=== PATIENT | female | born 1955 | race Caucasian/White ===

== ENCOUNTER 2017-04-13 11:10 | Inpatient (IN) | payer OTHER ==
[2017-04-13 12:46] LABS: ADD MAN DIFF? NO
[2017-04-13 12:53] LABS: BASOPHIL # 0.1 10^3/ul (0.0-0.1); BASOPHILS % 1.1 % (0.0-2.0); EOSINOPHILS # 0.3 10^3/ul (0.0-0.5); EOSINOPHILS % 3.8 % (0.0-7.0); HEMATOCRIT 42.2 % (37.0-47.0); LYMPHOCYTES # 2.4 10^3/ul (0.8-2.9); LYMPHOCYTES % 33.1 % (15.0-51.0); MEAN CORPUSCULAR HEMOGLOBIN 27.5 pg (29.0-33.0); MEAN CORPUSCULAR HGB CONC 33.2 g/dl (32.0-37.0); MEAN CORPUSCULAR VOLUME 82.9 fl (82.0-101.0); MEAN PLATELET VOLUME 9.6 fl (7.4-10.4); MONOCYTE # 0.6 10^3/ul (0.3-0.9); MONOCYTES % 8.4 % (0.0-11.0); NEUTROPHIL # 3.9 10^3/ul (1.6-7.5); NEUTROPHILS % 53.3 % (39.0-77.0); PLATELET COUNT 334 10^3/UL (140-415); RED BLOOD COUNT 5.09 10^6/ul (4.20-5.40)
[2017-04-13 12:53] LABS: WHITE BLOOD COUNT 7.4 10^3/ul (4.8-10.8)
[2017-04-13] MEDS: hydrALAzine 20 MG INJ IV (12:55)
[2017-04-13] MEDS: NIFEdipine (XL) 60 MG TAB PO (13:04)
[2017-04-13 13:13] LABS: PROTIME 12.2 Sec (11.9-14.9)
[2017-04-13 13:14] LABS: PARTIAL THROMBOPLASTIN TIME 31.5 Sec (25.0-35.0)
[2017-04-13 13:25] LABS: ANION GAP 16 (8-16); BLOOD UREA NITROGEN 17 mg/dl (7-20); CALCIUM 10.3 mg/dl (8.4-10.2); CARBON DIOXIDE 28 mmol/L (21-31); CHLORIDE 99 mmol/L (97-110); GLUCOSE 170 mg/dl (70-220); POTASSIUM 4.2 mmol/L (3.5-5.1); SODIUM 139 mmol/L (135-144)
[2017-04-13] MEDS ORDERED: ACETAMINOPHEN 650 MG SUPP PR (15:00)
[2017-04-13] MEDS ORDERED: DOCUSATE SODIUM 100 MG CAP PO (15:00)
[2017-04-13] MEDS ORDERED: ONDANSETRON (ODT) 4 MG TAB ODT (15:00)
[2017-04-13] MEDS ORDERED: ONDANSETRON 4 MG INJ IV (15:00)
[2017-04-13] MEDS ORDERED: hydrALAzine 20 MG INJ IV (15:00)
[2017-04-13] MEDS ORDERED: ACETAMINOPHEN 325 MG TAB PO (15:00)
[2017-04-13] MEDS ORDERED: BISACODYL 10 MG SUPP PR (15:00)
[2017-04-13] MEDS ORDERED: NACL 0.9% 3 ML SYG IV (15:00)
[2017-04-13] MEDS ORDERED: HYDROCODONE/APAP (5/325) TAB PO (15:00)
[2017-04-13 15:12] LABS: CREATINE KINASE 140 IU/L (23-200)
[2017-04-13 15:25] LABS: CK INDEX 1.8; CK-MB 2.45 ng/ml (0.0-2.4)
[2017-04-13 15:26] LABS: TROPONIN-I < 0.012 ng/ml (0.00-0.12)
[2017-04-13] MEDS: morphine 2 MG INJ IV (15:59)
[2017-04-13] MEDS: ASPIRIN 325 MG TAB PO (15:59)
[2017-04-13] MEDS: ACET/BUTAL/CAFF TAB PO (16:22)
[2017-04-13 16:30] LABS: HEMOGLOBIN A1C 8.3 % (0-5.9)
[2017-04-13] MEDS ORDERED: DEXTROSE 50% 50 ML SYRINGE IV ×2 (16:30)
[2017-04-13] MEDS ORDERED: GLUCOSE GEL 15 GRAM TUBE PO ×2 (16:30)
[2017-04-13] MEDS ORDERED: GLUCOSE GEL 15 GRAM TUBE BUCCAL (16:30)
[2017-04-13] MEDS ORDERED: GLUCAGON 1 MG INJ IM (16:30)
[2017-04-13] MEDS: INSULIN ASPART [NOVOLOG] 3 ML PEN SC ×2 (20:17→21:00)
[2017-04-13] MEDS: ATORVASTATIN 40 MG TAB PO (21:11)
[2017-04-13 22:26] LABS: CREATINE KINASE 93 IU/L (23-200)
[2017-04-13 22:39] LABS: TROPONIN-I 0.016 ng/ml (0.00-0.12)
[2017-04-14] MEDS: ACCU-CHEK XX (02:22)
[2017-04-14] MEDS: PANTOPRAZOLE 40 MG INJ IV (05:30)
[2017-04-14 06:57] LABS: HEMOGLOBIN A1C 8.3 % (0-5.9)
[2017-04-14 07:28] LABS: ALANINE AMINOTRANSFERASE 44 IU/L (13-69); ALBUMIN/GLOBULIN RATIO 1.17; ALKALINE PHOSPHATASE 89 IU/L (42-121); ANION GAP 15 (8-16); ASPARTATE AMINO TRANSFERASE 25 IU/L (15-46); BILIRUBIN,INDIRECT 0.3 mg/dl (0-1.1); BILIRUBIN,TOTAL 0.3 mg/dl (0.2-1.3); BLOOD UREA NITROGEN 21 mg/dl (7-20); CALCIUM 10.1 mg/dl (8.4-10.2); CARBON DIOXIDE 28 mmol/L (21-31); CHLORIDE 101 mmol/L (97-110); CHOL/HDL RATIO 6.2 RATIO; CHOLESTEROL 217 mg/dl (100-200); CREATININE 0.71 mg/dl (0.44-1.00); GLUCOSE 229 mg/dl (70-220); HDL CHOLESTEROL 35 mg/dl (35-98); LDL CHOLESTEROL,CALCULATED 99 mg/dl; MAGNESIUM 1.3 mg/dl (1.7-2.5); PHOSPHORUS 4.8 mg/dl (2.5-4.9); POTASSIUM 4.1 mmol/L (3.5-5.1); SODIUM 140 mmol/L (135-144); TOTAL PROTEIN 7.4 g/dl (6.1-8.1); TRIGLYCERIDES 416 mg/dl (0-149)
[2017-04-14 07:41] LABS: FREE THYROXINE INDEX (Calc) 3.24 ug/ml (0.65-3.89); T3 UPTAKE 32.4 % (23.5-40.5)
[2017-04-14] MEDS: INSULIN GLARGINE [LANtus] 3 ML PEN SC (09:40)
[2017-04-14] MEDS: INSULIN ASPART [NOVOLOG] 3 ML PEN SC ×4 (09:40→20:13)
[2017-04-14] MEDS: ASPIRIN (EC) 325 MG TAB PO (11:07)
[2017-04-14] MEDS: AMLODIPINE 5 MG TAB PO (15:36)
[2017-04-14] MEDS: ACET/BUTAL/CAFF TAB PO ×2 (15:39→20:08)
[2017-04-14] MEDS: hydrALAzine 20 MG INJ IV (18:40)
[2017-04-14] MEDS: ATORVASTATIN 40 MG TAB PO (20:05)
[2017-04-14] MEDS: METOPROLOL 25 MG TAB PO (20:16)
[2017-04-14] MEDS: HYDROCODONE/APAP (5/325) TAB PO (21:35)
[2017-04-15] MEDS: ACCU-CHEK XX (02:00)
[2017-04-15] MEDS: hydrALAzine 20 MG INJ IV ×3 (05:45→16:46)
[2017-04-15] MEDS: PANTOPRAZOLE 40 MG INJ IV (05:45)
[2017-04-15] MEDS: INSULIN ASPART [NOVOLOG] 3 ML PEN SC ×6 (08:02→21:03)
[2017-04-15] MEDS: INSULIN GLARGINE [LANtus] 3 ML PEN SC (08:02)
[2017-04-15] MEDS: ASPIRIN (EC) 325 MG TAB PO (08:12)
[2017-04-15] MEDS: METOPROLOL 25 MG TAB PO ×2 (08:13→20:43)
[2017-04-15] MEDS: LISINOPRIL 10 MG TAB PO (11:35)
[2017-04-15] MEDS: HYDROCODONE/APAP (5/325) TAB PO (13:56)
[2017-04-15] MEDS: MAGNESIUM HYDROXIDE 30ML CUP PO (13:58)
[2017-04-15] MEDS: ACET/BUTAL/CAFF TAB PO (16:45)
[2017-04-15] MEDS: MAGNESIUM SULFATE 4 GM/100 ML 100 ML IVPB (20:42)
[2017-04-15] MEDS: ATORVASTATIN 80 MG TAB PO (20:43)
[2017-04-15] MEDS: TOPIRAMATE 25 MG TAB PO (20:43)
[2017-04-16] MEDS: hydrALAzine 20 MG INJ IV ×4 (00:19→14:12)
[2017-04-16] MEDS: ACCU-CHEK XX ×2 (02:00→21:26)
[2017-04-16] MEDS: PANTOPRAZOLE 40 MG INJ IV (05:33)
[2017-04-16] MEDS: METOPROLOL 25 MG TAB PO ×2 (08:21→21:26)
[2017-04-16] MEDS: LISINOPRIL 20 MG TAB PO (08:21)
[2017-04-16] MEDS: ASPIRIN (EC) 325 MG TAB PO (08:21)
[2017-04-16] MEDS: INSULIN GLARGINE [LANtus] 3 ML PEN SC (08:27)
[2017-04-16] MEDS: INSULIN ASPART [NOVOLOG] 3 ML PEN SC ×7 (08:28→20:42)
[2017-04-16] MEDS: ENOXAPARIN 40 MG/0.4 ML SYG SC (08:29)
[2017-04-16 08:59] LABS: ANION GAP 17 (8-16); BLOOD UREA NITROGEN 25 mg/dl (7-20); CALCIUM 9.1 mg/dl (8.4-10.2); CARBON DIOXIDE 26 mmol/L (21-31); CHLORIDE 100 mmol/L (97-110); CREATININE 0.68 mg/dl (0.44-1.00); GLUCOSE 218 mg/dl (70-220); MAGNESIUM 2.2 mg/dl (1.7-2.5); POTASSIUM 4.5 mmol/L (3.5-5.1); SODIUM 138 mmol/L (135-144)
[2017-04-16] MEDS: AMLODIPINE 5 MG TAB PO ×2 (14:55→23:52)
[2017-04-16] MEDS: TOPIRAMATE 25 MG TAB PO (21:25)
[2017-04-16] MEDS: ATORVASTATIN 80 MG TAB PO (21:26)
[2017-04-17] MEDS: PANTOPRAZOLE 40 MG INJ IV (06:26)
[2017-04-17 07:01] LABS: ADD MAN DIFF? NO
[2017-04-17 07:07] LABS: EOSINOPHILS % 4.8 % (0.0-7.0); HEMATOCRIT 39.6 % (37.0-47.0); HEMOGLOBIN 13.1 g/dl (12.0-16.0); LYMPHOCYTES % 38.5 % (15.0-51.0); MEAN CORPUSCULAR HEMOGLOBIN 27.5 pg (29.0-33.0); MEAN CORPUSCULAR HGB CONC 33.1 g/dl (32.0-37.0); MONOCYTES % 7.7 % (0.0-11.0); NEUTROPHILS % 47.5 % (39.0-77.0); PLATELET COUNT 293 10^3/UL (140-415); RED BLOOD COUNT 4.77 10^6/ul (4.20-5.40); RED CELL DISTRIBUTION WIDTH 13.5 % (11.5-14.5)
[2017-04-17 07:07] LABS: WHITE BLOOD COUNT 6.2 10^3/ul (4.8-10.8)
[2017-04-17 07:08] LABS: BASOPHIL # 0.1 10^3/ul (0.0-0.1); BASOPHILS % 1.3 % (0.0-2.0); EOSINOPHILS # 0.3 10^3/ul (0.0-0.5); LYMPHOCYTES # 2.4 10^3/ul (0.8-2.9); MONOCYTE # 0.5 10^3/ul (0.3-0.9)
[2017-04-17 07:45] LABS: ANION GAP 14 (8-16); BLOOD UREA NITROGEN 19 mg/dl (7-20); CALCIUM 9.1 mg/dl (8.4-10.2); CARBON DIOXIDE 26 mmol/L (21-31); CHLORIDE 102 mmol/L (97-110); CREATININE 0.71 mg/dl (0.44-1.00); GLUCOSE 171 mg/dl (70-220); POTASSIUM 4.3 mmol/L (3.5-5.1); SODIUM 138 mmol/L (135-144)
[2017-04-17] MEDS: ASPIRIN (EC) 325 MG TAB PO (08:01)
[2017-04-17] MEDS: AMLODIPINE 5 MG TAB PO ×3 (08:01→20:50)
[2017-04-17] MEDS: METOPROLOL 25 MG TAB PO ×2 (08:01→20:50)
[2017-04-17] MEDS: LISINOPRIL 20 MG TAB PO (08:01)
[2017-04-17] MEDS: INSULIN GLARGINE [LANtus] 3 ML PEN SC (08:05)
[2017-04-17] MEDS: INSULIN ASPART [NOVOLOG] 3 ML PEN SC ×8 (08:06→20:55)
[2017-04-17] MEDS: ENOXAPARIN 40 MG/0.4 ML SYG SC (08:07)
[2017-04-17] MEDS: hydrALAzine 20 MG INJ IV (17:09)
[2017-04-17] MEDS: TOPIRAMATE 25 MG TAB PO (20:47)
[2017-04-17] MEDS: ATORVASTATIN 80 MG TAB PO (20:47)
[2017-04-17] MEDS: LABETALOL HCL 20MG INJ IV (21:48)
[2017-04-18] MEDS: ACCU-CHEK XX (01:36)
[2017-04-18] MEDS: PANTOPRAZOLE 40 MG INJ IV (05:41)
[2017-04-18 06:45] LABS: ADD MAN DIFF? NO
[2017-04-18 06:48] LABS: WHITE BLOOD COUNT 7.3 10^3/ul (4.8-10.8)
[2017-04-18 06:48] LABS: BASOPHIL # 0.1 10^3/ul (0.0-0.1); BASOPHILS % 0.8 % (0.0-2.0); EOSINOPHILS # 0.3 10^3/ul (0.0-0.5); EOSINOPHILS % 3.6 % (0.0-7.0); HEMATOCRIT 39.1 % (37.0-47.0); HEMOGLOBIN 12.7 g/dl (12.0-16.0); LYMPHOCYTES # 2.4 10^3/ul (0.8-2.9); LYMPHOCYTES % 33.2 % (15.0-51.0); MEAN CORPUSCULAR HEMOGLOBIN 27.3 pg (29.0-33.0); MEAN CORPUSCULAR HGB CONC 32.5 g/dl (32.0-37.0); MEAN CORPUSCULAR VOLUME 83.9 fl (82.0-101.0); MEAN PLATELET VOLUME 9.7 fl (7.4-10.4); MONOCYTE # 0.6 10^3/ul (0.3-0.9); MONOCYTES % 8.2 % (0.0-11.0); NEUTROPHIL # 3.9 10^3/ul (1.6-7.5); NEUTROPHILS % 53.9 % (39.0-77.0); PLATELET COUNT 263 10^3/UL (140-415); RED BLOOD COUNT 4.66 10^6/ul (4.20-5.40); RED CELL DISTRIBUTION WIDTH 13.7 % (11.5-14.5)
[2017-04-18 07:21] LABS: ANION GAP 14 (8-16); BLOOD UREA NITROGEN 18 mg/dl (7-20); CARBON DIOXIDE 24 mmol/L (21-31); CHLORIDE 106 mmol/L (97-110); CREATININE 0.73 mg/dl (0.44-1.00); GLUCOSE 172 mg/dl (70-220); POTASSIUM 4.4 mmol/L (3.5-5.1); SODIUM 140 mmol/L (135-144)
[2017-04-18] MEDS: LISINOPRIL 20 MG TAB PO (08:06)
[2017-04-18] MEDS: ASPIRIN (EC) 325 MG TAB PO (08:06)
[2017-04-18] MEDS: METOPROLOL 25 MG TAB PO (08:07)
[2017-04-18] MEDS: AMLODIPINE 5 MG TAB PO ×2 (08:07→20:15)
[2017-04-18] MEDS: INSULIN ASPART [NOVOLOG] 3 ML PEN SC ×7 (08:14→20:20)
[2017-04-18] MEDS: INSULIN GLARGINE [LANtus] 3 ML PEN SC (08:15)
[2017-04-18] MEDS: ENOXAPARIN 40 MG/0.4 ML SYG SC (08:16)
[2017-04-18] MEDS: hydrALAzine 20 MG INJ IV ×2 (11:55→23:56)
[2017-04-18] MEDS: LABETALOL HCL 20MG INJ IV (15:59)
[2017-04-18] MEDS: metFORMIN 500 MG TAB PO (17:56)
[2017-04-18] MEDS: ATORVASTATIN 80 MG TAB PO (20:14)
[2017-04-18] MEDS: TOPIRAMATE 25 MG TAB PO (20:15)
[2017-04-18] MEDS: METOPROLOL 50 MG TAB PO (22:43)
[2017-04-18] MEDS: HYDROCODONE/APAP (5/325) TAB PO (22:44)
[2017-04-19] MEDS: ACCU-CHEK XX (02:00)
[2017-04-19] MEDS: PANTOPRAZOLE 40 MG INJ IV (06:19)
[2017-04-19 07:36] LABS: ADD MAN DIFF? NO
[2017-04-19 07:47] LABS: BASOPHIL # 0.1 10^3/ul (0.0-0.1); BASOPHILS % 0.9 % (0.0-2.0); EOSINOPHILS # 0.3 10^3/ul (0.0-0.5); EOSINOPHILS % 2.7 % (0.0-7.0); HEMATOCRIT 40.4 % (37.0-47.0); HEMOGLOBIN 13.2 g/dl (12.0-16.0); LYMPHOCYTES # 2.8 10^3/ul (0.8-2.9); LYMPHOCYTES % 29.9 % (15.0-51.0); MEAN CORPUSCULAR HEMOGLOBIN 27.3 pg (29.0-33.0); MEAN CORPUSCULAR HGB CONC 32.7 g/dl (32.0-37.0); MEAN CORPUSCULAR VOLUME 83.6 fl (82.0-101.0); MEAN PLATELET VOLUME 10.1 fl (7.4-10.4); MONOCYTE # 0.8 10^3/ul (0.3-0.9); MONOCYTES % 7.9 % (0.0-11.0); NEUTROPHIL # 5.5 10^3/ul (1.6-7.5); NEUTROPHILS % 58.2 % (39.0-77.0); PLATELET COUNT 298 10^3/UL (140-415); RED BLOOD COUNT 4.83 10^6/ul (4.20-5.40); RED CELL DISTRIBUTION WIDTH 13.7 % (11.5-14.5)
[2017-04-19 07:47] LABS: WHITE BLOOD COUNT 9.5 10^3/ul (4.8-10.8)
[2017-04-19 08:00] LABS: ANION GAP 15 (8-16); BLOOD UREA NITROGEN 22 mg/dl (7-20); CALCIUM 9.4 mg/dl (8.4-10.2); CARBON DIOXIDE 23 mmol/L (21-31); CHLORIDE 104 mmol/L (97-110); CREATININE 0.76 mg/dl (0.44-1.00); GLUCOSE 157 mg/dl (70-220); POTASSIUM 4.1 mmol/L (3.5-5.1); SODIUM 138 mmol/L (135-144)
[2017-04-19 08:05] LABS: PHOSPHORUS 4.7 mg/dl (2.5-4.9)
[2017-04-19 08:05] LABS: MAGNESIUM 1.5 mg/dl (1.7-2.5)
[2017-04-19] MEDS: INSULIN ASPART [NOVOLOG] 3 ML PEN SC ×7 (09:09→20:39)
[2017-04-19] MEDS: ENOXAPARIN 40 MG/0.4 ML SYG SC (09:09)
[2017-04-19] MEDS: INSULIN GLARGINE [LANtus] 3 ML PEN SC (09:10)
[2017-04-19] MEDS: ASPIRIN (EC) 325 MG TAB PO (09:11)
[2017-04-19] MEDS: LISINOPRIL 20 MG TAB PO (09:11)
[2017-04-19] MEDS: METOPROLOL 50 MG TAB PO ×2 (09:11→20:32)
[2017-04-19] MEDS: AMLODIPINE 5 MG TAB PO ×2 (09:11→20:33)
[2017-04-19] MEDS: metFORMIN 500 MG TAB PO ×2 (09:26→17:30)
[2017-04-19] MEDS: MAGNESIUM SULFATE 2 GM/50 ML 50 ML IVPB (14:00)
[2017-04-19] MEDS: ATORVASTATIN 80 MG TAB PO (20:32)
[2017-04-19] MEDS: TOPIRAMATE 25 MG TAB PO (20:33)
[2017-04-20] MEDS: ACCU-CHEK XX (02:00)
[2017-04-20] MEDS: PANTOPRAZOLE 40 MG INJ IV ×2 (05:39→05:42)
[2017-04-20 08:18] LABS: ADD MAN DIFF? NO; BASOPHIL # 0.1 10^3/ul (0.0-0.1); BASOPHILS % 1.2 % (0.0-2.0); EOSINOPHILS # 0.2 10^3/ul (0.0-0.5); EOSINOPHILS % 2.7 % (0.0-7.0); HEMATOCRIT 39.6 % (37.0-47.0); LYMPHOCYTES # 2.7 10^3/ul (0.8-2.9); LYMPHOCYTES % 31.2 % (15.0-51.0); MEAN CORPUSCULAR HEMOGLOBIN 27.4 pg (29.0-33.0); MEAN CORPUSCULAR HGB CONC 32.8 g/dl (32.0-37.0); MEAN CORPUSCULAR VOLUME 83.5 fl (82.0-101.0); MONOCYTE # 0.6 10^3/ul (0.3-0.9); MONOCYTES % 7.4 % (0.0-11.0); NEUTROPHIL # 4.9 10^3/ul (1.6-7.5); NEUTROPHILS % 57.1 % (39.0-77.0); PLATELET COUNT 304 10^3/UL (140-415); RED BLOOD COUNT 4.74 10^6/ul (4.20-5.40); RED CELL DISTRIBUTION WIDTH 13.2 % (11.5-14.5)
[2017-04-20 08:18] LABS: WHITE BLOOD COUNT 8.6 10^3/ul (4.8-10.8)
[2017-04-20] MEDS: INSULIN ASPART [NOVOLOG] 3 ML PEN SC ×4 (08:22→11:43)
[2017-04-20] MEDS: INSULIN GLARGINE [LANtus] 3 ML PEN SC (08:23)
[2017-04-20 08:37] LABS: ANION GAP 15 (8-16); BLOOD UREA NITROGEN 25 mg/dl (7-20); CALCIUM 9.2 mg/dl (8.4-10.2); CARBON DIOXIDE 21 mmol/L (21-31); CHLORIDE 107 mmol/L (97-110); CREATININE 0.75 mg/dl (0.44-1.00); GLUCOSE 165 mg/dl (70-220); POTASSIUM 4.4 mmol/L (3.5-5.1); SODIUM 139 mmol/L (135-144)
[2017-04-20] MEDS: metFORMIN 500 MG TAB PO (08:50)
[2017-04-20] MEDS: AMLODIPINE 5 MG TAB PO (08:52)
[2017-04-20] MEDS: ASPIRIN (EC) 325 MG TAB PO (08:52)
[2017-04-20] MEDS: LISINOPRIL 20 MG TAB PO (08:52)
[2017-04-20] MEDS: METOPROLOL 50 MG TAB PO (08:53)
[2017-04-20] MEDS: ENOXAPARIN 40 MG/0.4 ML SYG SC (09:01)
== END 2017-04-20 14:25 | disposition home or self-care (01) | DRG 66 ==
LOC: E/R 11:10 → TEL 14:37
DX: I63.9 Cerebral infarction, unspecified (principal); E11.8 Type 2 diabetes mellitus with unspecified complications; I10 Essential (primary) hypertension; I16.0 Hypertensive urgency; E66.9 Obesity, unspecified; Z68.34 Body mass index [BMI] 34.0-34.9, adult; Z71.3 Dietary counseling and surveillance
CPT/HCPCS: 36415; 70450; 70552; 80048; 80053; 80061; 82550; 82553; 82962; 83036; 83735; 84100; 84436; 84443; 84479; 84484; 85025; 85610; 85730; 92523; 92610; 93005; 93306; 93880; 96372; 96374; 97162; 97165; 97530; 99285-25

== ENCOUNTER 2018-08-26 21:25 | Emergency (ER) | payer OTHER ==
[2018-08-26] MEDS: AZITHROMYCIN 500MG/NS (PMX) 250 ML IV (21:41)
[2018-08-26] MEDS: SODIUM CHLORIDE 0.9% 1L BAG IV* (22:01)
[2018-08-26 22:03] LABS: ADD MAN DIFF? NO
[2018-08-26] MEDS: CEFTRIAXONE 1 GM/50 ML (PMX) 50 ML IVPB (22:04)
[2018-08-26 22:05] LABS: BASOPHIL # 0.1 10^3/ul (0.0-0.1); BASOPHILS % 0.6 % (0.0-2.0); EOSINOPHILS % 0.2 % (0.0-7.0); HEMATOCRIT 39.7 % (37.0-47.0); HEMOGLOBIN 13.2 g/dl (12.0-16.0); LYMPHOCYTES # 1.1 10^3/ul (0.8-2.9); LYMPHOCYTES % 8.3 % (15.0-51.0); MEAN CORPUSCULAR HEMOGLOBIN 26.7 pg (29.0-33.0); MEAN CORPUSCULAR HGB CONC 33.2 g/dl (32.0-37.0); MEAN CORPUSCULAR VOLUME 80.2 fl (82.0-101.0); MEAN PLATELET VOLUME 9.7 fl (7.4-10.4); MONOCYTE # 0.8 10^3/ul (0.3-0.9); MONOCYTES % 6.5 % (0.0-11.0); NEUTROPHIL # 10.7 10^3/ul (1.6-7.5); NEUTROPHILS % 83.8 % (39.0-77.0); PLATELET COUNT 334 10^3/UL (140-415); RED BLOOD COUNT 4.95 10^6/ul (4.20-5.40); RED CELL DISTRIBUTION WIDTH 13.2 % (11.5-14.5)
[2018-08-26 22:05] LABS: WHITE BLOOD COUNT 12.7 10^3/ul (4.8-10.8)
[2018-08-26] MEDS: KETOROLAC 15 MG INJ IV (22:05)
[2018-08-26] MEDS: ACETAMINOPHEN 325 MG TAB PO (22:06)
[2018-08-26 22:10] LABS: ADD UMIC YES; UR ASCORBIC ACID NEGATIVE (NEGATIVE); UR BACTERIA FEW /HPF (NONE SEEN); UR BILIRUBIN (Dip) NEGATIVE (NEGATIVE); UR BLOOD (Dip) NEGATIVE (NEGATIVE); UR CLARITY SLIGHTLY CLOUDY (CLEAR); UR COLOR YELLOW (YELLOW); UR GLUCOSE (Dip) 3+ mg/dL (NEGATIVE); UR KETONES (Dip) TRACE mg/dL (NEGATIVE); UR LEUKOCYTE ESTERASE (Dip) TRACE Leu/ul (NEGATIVE); UR NITRITE (Dip) NEGATIVE (NEGATIVE); UR RBC 1 /HPF (0-5); UR SPECIFIC GRAVITY (Dip) 1.025 (1.003-1.030); UR TOTAL PROTEIN (Dip) 3+ mg/dl (NEGATIVE); UR UROBILINOGEN (Dip) NEGATIVE (NEGATIVE); UR WBC 35 /HPF (0-5)
[2018-08-26 22:24] LABS: ALANINE AMINOTRANSFERASE 41 IU/L (13-69); ALBUMIN 4.5 g/dl (3.3-4.9); ALBUMIN/GLOBULIN RATIO 1.18; ALKALINE PHOSPHATASE 139 IU/L (42-121); ANION GAP 10 (5-13); ASPARTATE AMINO TRANSFERASE 27 IU/L (15-46); BILIRUBIN,INDIRECT 0.8 mg/dl (0-1.1); BILIRUBIN,TOTAL 0.8 mg/dl (0.2-1.3); BLOOD UREA NITROGEN 17 mg/dl (7-20); CALCIUM 9.6 mg/dl (8.4-10.2); CARBON DIOXIDE 26 mmol/L (21-31); CHLORIDE 97 mmol/L (97-110); CREATININE 0.86 mg/dl (0.44-1.00); Estimated GFR > 60 mL/min (>60); GLUCOSE 324 mg/dl (70-220); POTASSIUM 4.1 mmol/L (3.5-5.1); SODIUM 133 mmol/L (135-144); TOTAL PROTEIN 8.3 g/dl (6.1-8.1)
[2018-08-26 22:25] LABS: INR 0.95; PROTIME 12.8 Sec (11.9-14.9)
[2018-08-26 22:26] LABS: PARTIAL THROMBOPLASTIN TIME 36.9 Sec (23.0-35.0)
[2018-08-26 22:36] LABS: TROPONIN-I < 0.012 ng/ml (0.000-0.120)
== END 2018-08-27 00:32 | disposition home or self-care (01) ==
LOC: E/R 08-27 00:32
DX: J18.1 Lobar pneumonia, unspecified organism (principal); R40.2142 Coma scale, eyes open, spontaneous, at arrival to emergency department; R40.2362 Coma scale, best motor response, obeys commands, at arrival to emergency department; R40.2252 Coma scale, best verbal response, oriented, at arrival to emergency department; N30.00 Acute cystitis without hematuria; I10 Essential (primary) hypertension; Z79.4 Long term (current) use of insulin; Z79.82 Long term (current) use of aspirin
CPT/HCPCS: 71045; 80053; 81001; 83605; 84484; 85025; 85610; 85730; 87040-91; 87086; 93005; 96374; 96375; 99285-25